=== PATIENT | male | born 1995 | race Caucasian/White ===

== ENCOUNTER 2025-03-17 13:39 | Outpatient (CLI) | payer BC, SELFPAY | END 2025-03-17 13:40 | disposition home or self-care (01) | PROVIDERS: PCP Family Medicine; Visit Provider Family Medicine | DX: R68.82 Decreased libido (principal); R53.83 Other fatigue; Z13.6 Encounter for screening for cardiovascular disorders | CPT/HCPCS: 80048; 80061; 84403; 84443; 85025 ==